=== PATIENT | female | born 1985 | race Caucasian/White ===

== ENCOUNTER → 2019-12-27 09:27 | Outpatient (BNVA) | payer BC, SELFPAY | PROVIDERS: Family Provider Family Medicine; PCP Family Medicine; Visit Provider Nurse Practitioner Women's Health | DX: Z01.419 Encounter for gynecological examination (general) (routine) without abnormal findings (principal); N63.0 Unspecified lump in unspecified breast; Z72.0 Tobacco use | CPT/HCPCS: 88175 ==

== ENCOUNTER 2020-01-17 09:03 | Outpatient (CLI) | payer BC, SELFPAY ==
--- NOTE | 2020-01-17 09:00 | MM_ITS ---
WS: [id number] BILATERAL DIGITAL DIAGNOSTIC MAMMOGRAM MAMMOGRAPHY WITH CAD CLINICAL INFORMATION: breast mass HISTORY: Bilateral palpable breast lumps COMPARISON: None. TECHNIQUE: Bilateral CC, MLO, and ML views. FINDINGS: The breasts are composed of heterogeneous fibroglandular density, which can limit the detection of sm all underlying mass lesions. Palpable markers upper outer left breast and mid upper right breast. Normal underlying breast tissue. Ultrasound is pending. ULTRASOUND BREAST BILATERAL TECHNIQUE: Ultrasound bilateral breast focused area of concern. CLINICAL INFORMATION: breast mass COMPARISON: None. FINDINGS: Ultrasound right breast 10 to 12:00 position. Ultrasound left breast 12 to 2:00 position. A few incid ental fibrocystic areas are visualized subcentimeter in size. Incidental simple cyst left breast 1:00 position measuring 13 x 11 mm. Additional smaller cyst at the 1:00 position measuring 10 x 9 mm. No suspicious lesions to target for biopsy. Findings are benign. MM/[place] [id number] IMPRESSION: BI-RADS: 2-Benign FOLLOW UP: Age 39
--- NOTE | 2020-01-17 09:30 | US_ITS ---
WS: [id number] BILATERAL DIGITAL DIAGNOSTIC MAMMOGRAM MAMMOGRAPHY WITH CAD CLINICAL INFORMATION: breast mass HISTORY: Bilateral palpable breast lumps COMPARISON: None. TECHNIQUE: Bilateral CC, MLO, and ML views. FINDINGS: The breasts are composed of heterogeneous fibroglandular density, which can limit the detection of sm all underlying mass lesions. Palpable markers upper outer left breast and mid upper right breast. Normal underlying breast tissue. Ultrasound is pending. ULTRASOUND BREAST BILATERAL TECHNIQUE: Ultrasound bilateral breast focused area of concern. CLINICAL INFORMATION: breast mass COMPARISON: None. FINDINGS: Ultrasound right breast 10 to 12:00 position. Ultrasound left breast 12 to 2:00 position. A few incid ental fibrocystic areas are visualized subcentimeter in size. Incidental simple cyst left breast 1:00 position measuring 13 x 11 mm. Additional smaller cyst at the 1:00 position measuring 10 x 9 mm. No suspicious lesions to target for biopsy. Findings are benign. US/US breast BI limited* [id number] IMPRESSION: BI-RADS: 2-Benign FOLLOW UP: Age 39
== END 2020-01-17 09:04 | disposition home or self-care (01) ==
LOC: RADSHAW 09:09
PROVIDERS: PCP Family Medicine; Visit Provider Nurse Practitioner Women's Health
DX: N63.0 Unspecified lump in unspecified breast (principal)
CPT/HCPCS: 76642; 77066